=== PATIENT | male | born 1950 | race Caucasian/White ===

== ENCOUNTER 2016-12-20 09:06 | Emergency (ER) | payer MEDICARE, MEDICAID ==
[~2016-12-20] VITALS: Wt 68.0 kg
[~2016-12-20 09:06] MED LIST: ATOR80TA75 PO; BUS5 PO; CARV3.1260 PO; ESCI20TA PO; ESOM40CA PO; EZET10TA3 PO; HYDR-906 PO; NIT4 SL; RAME8TAB10 PO; VALS40TA2 PO
[2016-12-20] MEDS ORDERED: IBUP-1542 PO (11:09)
[2016-12-20] MEDS ORDERED: BENZ100C70 PO (11:09)
[2016-12-20] MEDS ORDERED: LORA10CA PO (11:09)
--- NOTE | 2016-12-20 11:09 | RADRPT ---
PROCEDURE: XR Chest. CLINICAL INDICATION: Chest pain TECHNIQUE: A single AP view of the chest was obtained. COMPARISON: Chest x-ray dated 09/28/2016 FINDINGS: There is a left subclavian single lead AICD. No focal airspace opacification, pleural effusion or pneumothorax is seen. The cardiomediastinal si lhouette is within normal limits for size. The osseous structures are unremarkable. IMPRESSION: 1. No radiographic evidence of acute cardiopulmonary disease. No significant interval change. 2. Left subclavian single lead AICD. RPTAT: HH .Harika Doty MD, MD Date Time Electronically viewed and signed by .Harika Doty MD, on 12/20/2016 11:08 .Antoinette/
--- NOTE | 2016-12-20 11:19 | ERD ---
ER Documentation Chief Complaint Date/Time DATE: 12/20/16 TIME: 11:17 Chief Complaint cough and congestion with intermittent fever for 2 days.ear and throat pain HPI This is a 65-year-old male with diabetes type 2 hypertension presenting to the emergency room brought in by self complaining of cough, congestion, ear pain, sore throat for the past 2 days. Patient denies any shortness of breath. Patient states that he has had a cough medication at home without any relief. Denies any current fevers. Denies any other medication ROS All systems reviewed and are negative except as per history of present illness. Medications Home Meds Active Scripts Ibuprofen* (Ibuprofen*) 600 Mg Tablet, 600 MG PO Q6H, #30 TAB Prov:DOYLE AGUIRREC 12/20/16 Benzonatate* (Tessalon Perle*) 100 Mg Capsule, 100 MG PO Q8H Y for COUGH, #20 CAP Prov:DOYLE AGUIRRE-C 12/20/16 Loratadine* (Claritin*) 10 Mg Capsule, 10 MG PO DAILY, #20 CAP Prov:DOYLE AGUIRRE-C 12/20/16 Carvedilol* (Carvedilol*) 3.125 Mg Tablet, 3.125 MG PO BID, #60 TAB Prov:ZACKARY GONZALEZ MD 09/16/16 Nitroglycerin* (Nitrostat*) 0.4 Mg Tab.subl, 1 TAB SL Q5M Y for ANGINA for 14 Days Prov:FEDERICO DENTON 09/10/16 Reported Medications Hydrocodone/Acetaminophen ([place] 5-325 Tablet) 1 Each Tablet, 1 EACH PO BID Y for PAIN, TAB 09/26/16 Ramelteon (Rozerem) 8 Mg Tablet, 8 MG PO HS, TAB 09/06/16 Buspirone Hcl* (Buspar*) 5 Mg Tab, 5 MG PO BID, TAB 09/06/16 Escitalopram Oxalate* (Lexapro*) 20 Mg Tablet, 20 MG PO DAILY, #30 TAB 01/21/16 Esomeprazole Mag Trihydrate (Nexium) 40 Mg Capsule.dr, 40 MG PO DAILY, #30 CAP 01/21/16 Atorvastatin* (Atorvastatin*) 80 Mg Tablet, 80 MG PO QHS, #30 12/25/15 Ezetimibe* (Zetia*) 10 Mg Tablet, 10 MG PO HS, TAB 10/16/14 Valsartan* (Diovan*) 40 Mg Tablet, 40 MG PO DAILY 04/23/13 Allergies Allergies: Coded Allergies: No Known Allergy (Verified , 09/26/16) PMhx/Soc History of Surgery: Yes (PACEMAKER PLACEMENT) Anesthesia Reaction: No Hx Neurological Disorder: No Hx Respiratory Disorders: No Hx Cardiac Disorders: Yes (HTN,PACEMAKER PLACEMENT) Hx Psychiatric Problems: No Hx Miscellaneous Medical Probl: Yes (CARDIIOMYOPATHY) Hx Alcohol Use: No Hx Substance Use: No Hx Tobacco Use: Yes Smoking Status: Never smoker Physical Exam Vitals Vital Signs Date Time Temp Pulse Resp B/P Pulse Ox O2 Delivery O2 Flow Rate FiO2 12/20/16 09:09 97.9 88 20 140/81 98 Physical Exam GENERAL: well-developed/well-nourished, in no apparent distress, non-toxic appearing HEAD: NC/AT, no swelling noted in frontal or maxillary areas EARS: bilateral tympanic membrane is intact without erythema or effusion NARES: nares congested THROAT: oropharynx e non-erythematous EYES: Conjunctiva normal NECK: Supple, no lymphadenopathy PULM: CTA bilaterally, no rales, rhonchi, or wheezing heard CV: Normal S1S2, RRR, good capillary refill GI: Soft, non-distended, normal bowel sounds, non-tender BACK: No midline tenderness, no masses EXT No clubbing, cyanosis, or edema NEURO: Alert and Orientated SKIN: Intact, normal turgor PSYCH: Normal mood and mentation Results 24 hrs Procedures/MDM 65-year-old male presents to the ER with symptoms of upper respiratory infection , which is most likely viral. My clinical suspicion is low suspicion for pneumonia, strep pharyngitis, or pulmonary emergencies due to physical examination. Patient's lungs were clear on examination. Patient appears well. Chest x-ray was done in the ED did not show any evidence of infiltrates, pneumothorax or pleural effusion. Patient is afebrile with stable vital signs. Saturating well on room air. He suitable to follow-up with his primary care physician and supportive outpatient care. DISPOSITION: hemodynamically stable for discharge. Prescription for Claritin, Tessalon Perles and ibuprofen was given to patient, discussed to return to the ED if not improving as expected or follow-up with a primary care physician. Patient understood and agreed with this plan. CXR: 1. No radiographic evidence of acute cardiopulmonary disease. No significant interval change. 2. Left subclavian single lead AICD. Departure Diagnosis: Primary Impression: Upper respiratory infection URI type: unspecified viral URI Qualified Code: J06.9 - Viral upper respiratory tract infection Condition: Stable Patient Instructions: Preventing Common Respiratory Infections, Uri, Viral, No Abx (Adult) Referrals: SHANTE GONZALEZ MD (PCP) Additional Instructions: Visite a siddiqui su le para un EXAMEN.Regrese a estas instalaciones si no se mejora chuckie esperbamos o chuckie le dijimos. [place] toda la medicina roberto y chuckie se le indic. Regrese a estas instalaciones si no se mejora chuckie esperbamos o chuckie le dijimos. DOYLE AGUIRRE PA-C Dec 20, 2016 11:19
[2016-12-20 11:24] VITALS: BP 132/67; PULSE 72; RESP 19; TEMP 98.4
== END 2016-12-20 11:28 | disposition home or self-care (01) ==
LOC: FTE 09:06
DX: J06.9 Acute upper respiratory infection, unspecified (principal); I10 Essential (primary) hypertension; E11.9 Type 2 diabetes mellitus without complications; Z95.0 Presence of cardiac pacemaker; Z87.891 Personal history of nicotine dependence
CPT/HCPCS: 71010

== ENCOUNTER 2017-06-23 14:12 | Emergency (ER) | payer MEDICARE, OTHER ==
[~2017-06-23] VITALS: Wt 66.0 kg
[~2017-06-23 14:12] MED LIST changes: +BENZ100C70 PO; +IBUP-1542 PO; +LORA10CA PO
[2017-06-23] MEDS ORDERED: ONDANSETRON 4 MG INJ IV STA (14:35)
[2017-06-23] MEDS ORDERED: morphine 4 MG/ML VIAL IV STA (15:01)
[2017-06-23 15:07] LABS: BASOPHILS % 0.3 % (0.0-2.0); EOSINOPHILS # 0.1 10^3/ul (0.0-0.5); EOSINOPHILS % 1.4 % (0.0-7.0); HEMOGLOBIN 15.3 g/dl (14.0-18.0); LYMPHOCYTES # 2.5 10^3/ul (0.8-2.9); LYMPHOCYTES % 27.2 % (15.0-51.0); MEAN CORPUSCULAR HEMOGLOBIN 31.3 pg (29.0-33.0); MEAN CORPUSCULAR HGB CONC 34.8 g/dl (32.0-37.0); MONOCYTE # 0.7 10^3/ul (0.3-0.9); MONOCYTES % 7.8 % (0.0-11.0); NEUTROPHIL # 5.7 10^3/ul (1.6-7.5); NEUTROPHILS % 63.1 % (39.0-77.0); PLATELET COUNT 175 10^3/UL (140-415); RED BLOOD COUNT 4.89 10^6/ul (4.70-6.10); RED CELL DISTRIBUTION WIDTH 13.5 % (11.5-14.5)
[2017-06-23] MEDS ORDERED: DICL75TA2 PO (15:12)
[2017-06-23] MEDS ORDERED: ASPI-664 PO (15:12)
[2017-06-23] MEDS ORDERED: METF500T4 PO (15:13)
[2017-06-23] MEDS ORDERED: GABA100C14 PO (15:13)
[2017-06-23] MEDS ORDERED: OFLO5DRO46 BOTH EYES (15:15)
[2017-06-23] MEDS ORDERED: ALBU18HF INHALATION (15:15)
[2017-06-23] MEDS ORDERED: NEPA1.7D OP (15:17)
[2017-06-23 15:25] LABS: INR 0.9; PROTIME 12.1 Sec (12.2-14.2); PT RATIO 0.9
[2017-06-23] MEDS ORDERED: PRD1OP5 BOTH EYES (15:44)
[2017-06-23 15:46] LABS: ALBUMIN 4.7 g/dl (3.3-4.9); ALBUMIN/GLOBULIN RATIO 1.51; BILIRUBIN,INDIRECT 0.6 mg/dl (0-1.1); BILIRUBIN,TOTAL 0.6 mg/dl (0.2-1.3); CALCIUM 9.5 mg/dl (8.4-10.2); CREATININE 0.82 mg/dl (0.61-1.24); POTASSIUM 4.6 mmol/L (3.5-5.1); TOTAL PROTEIN 7.8 g/dl (6.1-8.1)
[2017-06-23 15:57] LABS: TROPONIN-I 0.027 ng/ml (0.00-0.12)
--- NOTE | 2017-06-23 16:14 | RADRPT ---
PROCEDURE: CT Brain without contrast. CLINICAL INDICATION: r/o bleed TECHNIQUE: A CT of the brain was performed on a GE LightSpeed 64-slice CT scanner utilizing axial imaging from the skull base through the vertex without IV contrast. Multiplanar reformatted images were made. Images were reviewed on a PACS workstation. The CTDIvol is 42.69 mGy and the DLP is 720 .23 mGycm. COMPARISON: CT brain 09/28/2016 FINDINGS: The previously seen minimal extra-axial blood in the right frontal opercular region on prior CT of 1 11/28/2015 has resolved. There is no acute intracranial hemorrhage, midline shift, or mass effect. No abnormal extra-axial c ollection is seen. The cerebral richter-white matter differentiation is preserved. The cerebral sulci and ventricles are within normal limits for patient's age. Patchy low attenuation in the periventricular and subcortical white matter is nonspecific, but sugge stive of sequelae of mild to moderate chronic microvascular ischemic white matter disease. The brainstem and cerebellum are grossly unremarkable. The basal cisterns are preserved. There is intracranial atherosclerotic disease involving the internal carotid arteries bilaterally. The frontal sinuses are hypoplastic, but clear bilaterally. The partially visualized ethmoid and sph enoid sinuses are clear. The mastoid air cells are clear. No acute fracture or suspicious osseous lesion is identified. A well-circumscribed ovoid fat density measuring 2.7 cm TR x 0.5 cm AP x 2.1 cm CC in the occipital scalp is consistent with an incidental scalp lipoma (series 2, image 16) and is stable compared to p rior study. IMPRESSION: 1. No evidence of acute intracranial pathology. 2. Evidence of mild to moderate chronic microvascular ischemic cerebral white matter disease. 3. Intracranial atherosclerotic disease. 4. 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 RPTAT: EE Physician Alma Date Time Electronically viewed and signed by Physician Alma on 06/23/2017 16:13 /
--- NOTE | 2017-06-23 16:40 | RADRPT ---
PROCEDURE: XR Chest. CLINICAL INDICATION: Abdominal pain. TECHNIQUE: Single frontal view. COMPARISON: 12/20/2016. FINDINGS: There is a left-sided single lead permanent pacemaker/internal cardiac defibrillator. The heart size is normal. The lungs are clear. There is no pleural effusion. There is no pneumothorax. IMPRESSION: 1. Left-sided single lead permanent pacemaker/internal cardiac defibrillator. 2. Clear lungs. RPTAT: QQ .Davie Schultz MD, MD Date Time Electronically viewed and signed by .Davie Schultz MD, MD on 06/23/2017 16:40 .R/
[2017-06-23] MEDS ORDERED: ONDA4TAB8 PO (17:37)
[2017-06-23] MEDS ORDERED: NYST1000 PO (17:37)
[2017-06-23] MEDS ORDERED: IBUP-1542 PO (17:37)
[2017-06-23 17:43] VITALS: BP 139/89; PULSE 62; RESP 18; TEMP 98.4
--- NOTE | 2017-06-23 17:45 | ERD ---
ER Documentation Chief Complaint Date/Time DATE: 06/23/17 TIME: 17:40 Chief Complaint CHEST PAIN, SOB, HEADACHE HPI 66-year-old man with multiple complaints but mostly here for recent throat discomfort 3 days and headache beginning this morning, he is also had multiple episodes of clear nonbloody nonbilious emesis which he and his state is secondary to his headache and hypertension. Patient also describes sharp nonexertional nonradiating chest pain and nasal congestion. states he has had these symptoms before and attributes his symptoms to chest pain and headache. Patient denies calf or leg swelling, no abdominal pain, no diarrhea, no recent antibiotic use or recent travel. ROS All systems reviewed and are negative except as per history of present illness. Medications Home Meds Active Scripts Nystatin (Nystatin) 100,000 Unit/1 Ml Oral.susp, 2 ML PO TID for 7 Days, #60 ML Prov:VERONICA REYNOLDS MD 06/23/17 Ondansetron Hcl* (Zofran*) 4 Mg Tablet, 4 MG PO Q8 for VOMITTING, #15 TAB Prov:VERONICA REYNOLDS MD 06/23/17 Ibuprofen* (Ibuprofen*) 600 Mg Tablet, 600 MG PO Q8 for PAIN AND/OR INFLAMMATION , #30 TAB Prov:VERONICA REYNOLDS MD 06/23/17 Carvedilol* (Carvedilol*) 3.125 Mg Tablet, 3.125 MG PO BID, #60 TAB Prov:ZACKARY GONZALEZ MD 09/16/16 Reported Medications Prednisolone Acetate* (Pred Forte*) 5 Ml Susp, 1 DROP BOTH EYES QID, EA 06/23/17 Nepafenac (ILEVRO) 1.7 Ml Drops.susp, 1.7 ML OP DAILY 06/23/17 Albuterol Sulfate* (Ventolin HFA*) 18 Gm Hfa.aer.ad, 2 PUFF INHALATION Q6H, #1 INHALER 06/23/17 Ofloxacin* (Ocuflox*) 0.3%-5 Ml Ophth Drops, 1 DROP BOTH EYES QID, BOTTLE 06/23/17 Gabapentin* (Gabapentin*) 100 Mg Capsule, 100 MG PO TID, #90 CAP 06/23/17 Metformin Hcl* (Metformin Hcl*) 500 Mg Tablet, 500 MG PO WITH BREAKFAST, #30 TAB 06/23/17 Aspirin* (Aspirin* EC) 81 Mg Tablet.dr, 81 MG PO DAILY, TAB 06/23/17 Diclofenac Sodium* (Diclofenac Sodium*) 75 Mg Tablet.dr, 75 MG PO BID, #60 TAB 06/23/17 Buspirone Hcl* (Buspar*) 5 Mg Tab, 5 MG PO BID, TAB 09/06/16 Atorvastatin* (Atorvastatin*) 80 Mg Tablet, 80 MG PO QHS, #30 11/07/15 Valsartan* (Diovan*) 40 Mg Tablet, 40 MG PO DAILY 04/23/13 Discontinued Reported Medications Hydrocodone/Acetaminophen ([place] 5-325 Tablet) 1 Each Tablet, 1 EACH PO BID Y for PAIN, TAB 09/26/16 Ramelteon (Rozerem) 8 Mg Tablet, 8 MG PO HS, TAB 09/06/16 Escitalopram Oxalate* (Lexapro*) 20 Mg Tablet, 20 MG PO DAILY, #30 TAB 01/21/16 Esomeprazole Mag Trihydrate (Nexium) 40 Mg Capsule.dr, 40 MG PO DAILY, #30 CAP 01/21/16 Ezetimibe* (Zetia*) 10 Mg Tablet, 10 MG PO HS, TAB 10/16/14 Discontinued Scripts Ibuprofen* (Ibuprofen*) 600 Mg Tablet, 600 MG PO Q6H, #30 TAB Prov:DOYLE AGUIRRE-C 12/20/16 Benzonatate* (Tessalon Perle*) 100 Mg Capsule, 100 MG PO Q8H Y for COUGH, #20 CAP Prov:DOYLE AGUIRRE PA-C 12/20/16 Loratadine* (Claritin*) 10 Mg Capsule, 10 MG PO DAILY, #20 CAP Prov:DOYLE AGUIRRE PA-C 12/20/16 Nitroglycerin* (Nitrostat*) 0.4 Mg Tab.subl, 1 TAB SL Q5M Y for ANGINA for 14 Days Prov:FEDERICO DENTON 09/10/16 Allergies Allergies: Coded Allergies: No Known Allergy (Verified , 06/23/17) PMhx/Soc Coronary artery disease, previous stroke, diabetes mellitus, hypertension, dyslipidemia, cardiomyopathy with left ventricular ejection fraction of 30% History of Surgery: Yes (PACEMAKER PLACEMENT, B eye surgery.) Anesthesia Reaction: No Hx Neurological Disorder: No Hx Respiratory Disorders: No Hx Cardiac Disorders: Yes (HTN,PACEMAKER PLACEMENT, cholesterol, [place]) Hx Psychiatric Problems: No Hx Miscellaneous Medical Probl: Yes (CARDIIOMYOPATHY, DM) Hx Alcohol Use: No Hx Substance Use: No Hx Tobacco Use: Yes Smoking Status: Current every day smoker FmHx Family History: No diabetes Physical Exam Vitals Vital Signs Date Time Temp Pulse Resp B/P Pulse Ox O2 Delivery O2 Flow Rate FiO2 06/23/17 17:43 98.4 62 18 139/89 97 Room Air 06/23/17 16:25 52 18 118/80 98 Room Air 06/23/17 14:15 96.9 59 18 143/88 97 Physical Exam GENERAL: Well-developed, well-nourished, nauseous, vomiting, afebrile HEENT: Positive oral pharyngeal thrush, pink conjunctiva, no cervical spine tenderness or step-off deformities, no goiter, no jaundice or icterus, extraocular movements intact without pain. No submandibular induration, and no pharyngeal erythema NEURO: Alert and oriented 3, cranial nerves II through XII intact bilaterally, pupils equal round reactive to light, no focal deficits or facial asymmetry, sensation intact distally Strength 5/5 in upper and lower extremities bilaterally CARDIAC: Bradycardic and regular, no murmurs rubs or gallops LUNGS: Clear bilaterally no wheezing crackles or stridor ABDOMEN: Soft nontender, no guarding, no rigidity, no rebound, no psoas sign no obturator sign. Normoactive bowel sounds SKIN: Warm and dry to touch, no abrasions, contusions, or hematomas, no lacerations, no ecchymosis, no target lesions, and without ulcers EXTREMITIES: No clubbing cyanosis or edema, calves are bilaterally symmetrical, no Homans sign, no popliteal cord sign. Distal pulses equal and bilateral PSYCH: Normal affect without agitation or irritability Result Diagram: 06/23/17 1449 06/23/17 1449 Results 24 hrs Laboratory Tests Test 06/23/17 14:49 White Blood Count 9.010^3/ul Red Blood Count 4.8910^6/ul Hemoglobin 15.3g/dl Hematocrit 44.0% Mean Corpuscular Volume 90.0fl Mean Corpuscular Hemoglobin 31.3pg Mean Corpuscular Hemoglobin Concent 34.8g/dl Red Cell Distribution Width 13.5% Platelet Count 56176^3/UL Mean Platelet Volume 10.0fl Neutrophils % 63.1% Lymphocytes % 27.2% Monocytes % 7.8% Eosinophils % 1.4% Basophils % 0.3% Nucleated Red Blood Cells % 0.0/100WBC Neutrophils # 5.710^3/ul Lymphocytes # 2.510^3/ul Monocytes # 0.710^3/ul Eosinophils # 0.110^3/ul Basophils # 0.010^3/ul Nucleated Red Blood Cells # 0.010^3/ul Prothrombin Time 12.1Sec Prothrombin Time Ratio 0.9 INR International Normalized Ratio 0.90 Sodium Level 141mmol/L Potassium Level 4.6mmol/L Chloride Level 101mmol/L Carbon Dioxide Level 25mmol/L Anion Gap 20 Blood Urea Nitrogen 15mg/dl Creatinine 0.82mg/dl Glucose Level 102mg/dl Calcium Level 9.5mg/dl Total Bilirubin 0.6mg/dl Direct Bilirubin 0.00mg/dl Indirect Bilirubin 0.6mg/dl Aspartate Amino Transf (AST/SGOT) 40IU/L Alanine Aminotransferase (ALT/SGPT) 46IU/L Alkaline Phosphatase 76IU/L Troponin I 0.027ng/ml Total Protein 7.8g/dl Albumin 4.7g/dl Globulin 3.10g/dl Albumin/Globulin Ratio 1.51 Lipase 145U/L Current Medications Medications (Trade) Dose Ordered Sig/Yovani Route PRN Reason Start Time Stop Time Status Last Admin Dose Admin Ondansetron HCl (Zofran Inj) 4 mg ONCE STAT IV 06/23/17 14:35 06/23/17 14:38 DC 06/23/17 14:50 Morphine Sulfate (morphine) 4 mg ONCE STAT IV 06/23/17 15:01 06/23/17 15:02 DC 06/23/17 15:14 Procedures/MDM IV line was established patient was placed on cardiac cath technologist rhythm strip revealed a sinus bradycardia 50 bpm. Patient was afebrile. CT scan of the brain was negative for acute bleed mass or shift. Please refer to radiologist dictation for full report. One view chest x-ray performed, read by me there is cardiomegaly and clear lungs no acute infiltrates or pneumothorax. Pacemaker in place on the left chest. EKG performed, read by me revealed a paced wide-complex rhythm at 50 bpm, left axis deviation, no concerning ST elevations or depressions noted. CBC and electrolytes were normal, liver function tests were normal, troponin was negative. I administered morphine 4 mg IV and Zofran 4 mg IV with complete resolution of symptoms. His headache and chest pain completely resolved, and he has no complaints of nausea or vomiting. He is able to tolerate p.o. without difficulty and states he feels much better. Patient's vital signs improved. Differential diagnoses considered, included but not limited to acute coronary syndrome, pulmonary embolism, aortic dissection, abdominal aortic aneurysm, sepsis, stroke, meningitis, encephalitis, pneumonia, appendicitis, cholecystitis , bowel obstruction, pyelonephritis, nephrolithiasis, cystitis, as well as metabolic, hematologic, and electrolyte abnormalities. As well as abscess, cellulitis, fractures, and dislocations. Patient feels much better at this time, and vital signs are normal, symptoms have improved. I did give strict instructions to return to the ED if symptoms continue or worsen, patient will otherwise follow-up with primary care physician. Patient understood instructions and agreed to plan. Disclaimer: Inadvertent spelling and grammatical errors are likely due to EHR/ dictation software use and do not reflect on the overall quality of patient care. Also, please note that the electronic time recorded on this note does not necessarily reflect the actual time of the patient encounter. Departure Diagnosis: Primary Impression: Thrush Additional Impressions: Nausea and vomiting Vomiting type: unspecified Vomiting Intractability: non-intractable Qualified Code: R11.2 - Non-intractable vomiting with nausea, unspecified vomiting type URI (upper respiratory infection) URI type: acute nasopharyngitis (common cold) Qualified Code: J00 - Acute nasopharyngitis Headache Headache type: tension-type Headache chronicity pattern: acute headache Intractability: not intractable Qualified Code: G44.209 - Acute non intractable tension-type headache Condition: Good Patient Instructions: Oral Thrush, Nausea and Vomiting-Adult, Headache, Tension VERONICA REYNOLDS MD Jun 23, 2017 17:45
== END 2017-06-23 17:45 | disposition home or self-care (01) ==
LOC: E/R 14:12
DX: B37.9 Candidiasis, unspecified (principal); R11.2 Nausea with vomiting, unspecified; J00 Acute nasopharyngitis [common cold]; G44.209 Tension-type headache, unspecified, not intractable; R06.02 Shortness of breath; E11.9 Type 2 diabetes mellitus without complications; I25.10 Atherosclerotic heart disease of native coronary artery without angina pectoris; I10 Essential (primary) hypertension; F17.210 Nicotine dependence, cigarettes, uncomplicated; Z95.0 Presence of cardiac pacemaker; Z79.82 Long term (current) use of aspirin; Z79.84 Long term (current) use of oral hypoglycemic drugs
CPT/HCPCS: 36415; 70450; 71010; 80053; 83690; 84484; 85025; 85610; 93005; 96374; 96375; 99285; J2270; J2405

== ENCOUNTER 2017-11-20 03:13 | Inpatient (IN) | END 2017-11-24 19:18 | DRG 312 ==

== ENCOUNTER 2017-11-24 19:25 | Inpatient (IN) | END 2017-12-05 13:50 | disposition home health service (06) | DRG 945 ==

== ENCOUNTER → 2018-01-11 | Outpatient (CLI) | END | disposition home or self-care (01) ==

== ENCOUNTER 2018-09-19 09:26 | Emergency (ER) | END 2018-09-19 16:24 | disposition home or self-care (01) ==